=== PATIENT | female | born 1995 | race Caucasian/White ===

== ENCOUNTER 2022-05-03 12:43 | Emergency (ER) | payer OTHER ==
[~2022-05-03] VITALS: Ht 162.6 cm; Wt 109.1 kg
[2022-05-03 12:50] VITALS: TEMP 98.5
[2022-05-03 13:55] LABS: BASO % 0.7 % (0.0-2.0); EOS # 0.1 K/mm3 (0.0-0.7); EOS % 1.2 % (0.0-4.0); GRAN # 3.4 K/mm3 (1.4-6.5); GRAN % 56.7 % (42.2-75.2); HEMATOCRIT 40.2 % (37.0-47.0); HEMOGLOBIN 13.2 g/dl (12.5-16.0); LYMPH # 1.8 K/mm3 (1.2-3.4); LYMPH % 29.5 % (20.0-51.0); MEAN CELL VOLUME 88 fl (80.0-100.0); MEAN CORPUSCULAR HEMOGLOBIN 29 pg (27-31); MEAN CORPUSCULAR HGB CONC 33 g/dl (33.0-37.0); MEAN PLATELET VOLUME 9.8 fl (7.4-10.4); MONO # 0.7 K/mm3 (0.1-0.6); MONO % 11.7 % (1.7-9.3); PLATELET COUNT 335 K/mm3 (130-400); RED BLOOD COUNT 4.56 M/mm3 (4.10-5.30); REDCELL DISTRIBUTION WIDTH-CV 12.7 % (11.5-14.5)
[2022-05-03 14:11] LABS: ALBUMIN 4.1 gm/dL (3.5-5.0); BILIRUBIN,TOTAL 0.6 mg/dL (0.2-1.2); CALCIUM 9.8 mg/dL (8.4-10.2); CREATININE, serum 0.81 mg/dL (0.57-1.11); POTASSIUM 4.5 mmol/L (3.5-4.5); TOTAL PROTEIN 7.5 gm/dL (6.2-8.1)
[2022-05-03 15:32] VITALS: BP 142/100; PULSE 74
== END 2022-05-03 15:33 | disposition home or self-care (01) ==
LOC: COL.ER 12:43
PROVIDERS: Physician Assistant
DX: N93.9 Abnormal uterine and vaginal bleeding, unspecified (principal); R03.0 Elevated blood-pressure reading, without diagnosis of hypertension; Z28.310 Unvaccinated for COVID-19
CPT/HCPCS: J7030

== ENCOUNTER 2022-12-13 23:27 | Observation (INO) | payer OTHER ==
[~2022-12-13] VITALS: Ht 162.6 cm; Wt 118.2 kg
[2022-12-14] VITALS (7 sets, daily range): BP systolic 112–135; BP diastolic 65–85; PULSE 69–85; TEMP 98–98.9
[2022-12-14] MEDS ORDERED: PRILOSEC 20MG20 MG PO (01:18)
[2022-12-14] MEDS ORDERED: LAMICTAL 100MG100 MG PO (01:19)
[2022-12-14] MEDS ORDERED: BRINTELLIX20 PO (01:19)
[2022-12-14 08:08] LABS: BASO # 0.1 K/mm3 (0.0-0.2); BASO % 1.2 % (0.0-2.0); EOS # 0.1 K/mm3 (0.0-0.7); EOS % 1.2 % (0.0-4.0); GRAN # 2.8 K/mm3 (1.4-6.5); GRAN % 55.6 % (42.2-75.2); HEMATOCRIT 39.1 % (37.0-47.0); HEMOGLOBIN 12.8 g/dl (12.5-16.0); LYMPH # 1.6 K/mm3 (1.2-3.4); MEAN CELL VOLUME 89 fl (80.0-100.0); MEAN CORPUSCULAR HEMOGLOBIN 29 pg (27-31); MEAN CORPUSCULAR HGB CONC 33 g/dl (33.0-37.0); MEAN PLATELET VOLUME 9.9 fl (7.4-10.4); MONO # 0.5 K/mm3 (0.1-0.6); MONO % 10.8 % (1.7-9.3); PLATELET COUNT 266 K/mm3 (130-400); RED BLOOD COUNT 4.39 M/mm3 (4.10-5.30)
--- NOTE | 2022-12-14 08:20 | NUR ---
c/o pain 03/22, requesting a different pain pill as oxycodone caused nausea, medicated with norco 5mg 1 tab, was also medicated earlier with zofran 4mg slow IV by student RN assisting with her care, full assessment completed, see interventions for further info
[2022-12-14 08:31] LABS: ALBUMIN 3.7 gm/dL (3.5-5.0); BILIRUBIN,TOTAL 3.9 mg/dL (0.2-1.2); CALCIUM 8.7 mg/dL (8.4-10.2); CREATININE, serum 0.67 mg/dL (0.57-1.11); MAGNESIUM 1.9 mg/dL (1.6-2.6); POTASSIUM 3.5 mmol/L (3.5-4.5); TOTAL PROTEIN 6.8 gm/dL (6.2-8.1)
--- NOTE | 2022-12-14 09:06 | NUR ---
reviewed assessment completed by student RN and in agreement with that assessment
--- NOTE | 2022-12-14 09:10 | NUR ---
to radiology for MRCP per WC
--- NOTE | 2022-12-14 09:50 | NUR ---
returned per WC from radiology, back to bed and will rest
--- NOTE | 2022-12-14 11:16 | NUR ---
Telephone Answering Service Operator met with Patient in [facility] Medical Unit to conduct Care Managment Assessment and discuss diacherge planning. Patient lives in [place], [place] with her , Les P: [phone] and her children. PAtient is established with PCP through [facility] on [address] [place], [place] where she also recieves RX services. PAtient denies the use of O2, DME, and home health services prior to admission. PAtient reports to not have advanced directives and declines to establish them during this admission. Patient intends to discharge home when medically cleared pending treatment team reccomendations. Discharge Plan: Home pending treatment team reccomendations.
--- NOTE | 2022-12-14 13:23 | NUR ---
Initial visit: Locate Technician stopped by room on rounds. Pt has no needs right now. Locate Technician will follow up as needed.
--- NOTE | 2022-12-14 13:30 | NUR ---
Dr Armas in to se patient
--- NOTE | 2022-12-14 14:09 | NUR ---
RON charting reviewed, john with documentation. STEFAN Villagomez Clincial Instructor.
--- NOTE | 2022-12-14 14:21 | NUR ---
resting in bed, c/o some nausea and requesting zofran, will request student RN to provide this
--- NOTE | 2022-12-14 16:00 | NUR ---
appears to be sleeping
--- NOTE | 2022-12-14 17:30 | NUR ---
called concerned because she had not responded to his messages, awakened from sleep and asked her to call him, verbalizes understanding
--- NOTE | 2022-12-14 18:43 | NUR ---
resting in bed, c/o some nausea, bedside shift report given to STEFAN Maria
[2022-12-15 04:17] VITALS: BP 133/72; PULSE 83; TEMP 98
[2022-12-15 06:38] LABS: BASO % 0.8 % (0.0-2.0); EOS # 0.1 K/mm3 (0.0-0.7); EOS % 1.9 % (0.0-4.0); GRAN # 1.9 K/mm3 (1.4-6.5); GRAN % 39.1 % (42.2-75.2); HEMATOCRIT 38.4 % (37.0-47.0); HEMOGLOBIN 12.5 g/dl (12.5-16.0); LYMPH # 2.1 K/mm3 (1.2-3.4); LYMPH % 44.2 % (20.0-51.0); MEAN CELL VOLUME 89 fl (80.0-100.0); MEAN CORPUSCULAR HEMOGLOBIN 29 pg (27-31); MEAN CORPUSCULAR HGB CONC 33 g/dl (33.0-37.0); MEAN PLATELET VOLUME 10.1 fl (7.4-10.4); MONO # 0.7 K/mm3 (0.1-0.6); PLATELET COUNT 272 K/mm3 (130-400); REDCELL DISTRIBUTION WIDTH-CV 13.2 % (11.5-14.5)
[2022-12-15 06:55] LABS: ALBUMIN 3.5 gm/dL (3.5-5.0); BILIRUBIN,DIRECT 1.9 mg/dL (0.0-0.5); BILIRUBIN,TOTAL 2.7 mg/dL (0.2-1.2); CALCIUM 8.8 mg/dL (8.4-10.2); CREATININE, serum 0.74 mg/dL (0.57-1.11); POTASSIUM 3.5 mmol/L (3.5-4.5); TOTAL PROTEIN 6.6 gm/dL (6.2-8.1)
[2022-12-15 07:17] VITALS: BP 107/58; PULSE 73; TEMP 96.8
--- NOTE | 2022-12-15 07:47 | NUR ---
Pt is laying in bed upon entering room. Morning medications administered per eMAR. Shift assessment completed. VSS. INT in L AC remains patent, no edema or redness. Pt continues to c/o ABD pain, PRN norco administered. No further requeset at this time. Call light within reach.
[2022-12-15 10:54] VITALS: BP 110/64; PULSE 66; TEMP 98.5
[2022-12-15] MEDS ORDERED: ROXICODONE 55 MG/TAB PO ×2 (11:59)
[2022-12-15] MEDS ORDERED: ZOFRAN ODT4 MG PO (11:59)
[2022-12-15] MEDS ORDERED: ULTRAM 50MG TAB50 MG PO (12:04)
--- NOTE | 2022-12-15 13:29 | NUR ---
Pt discharge instructions provided. All questions answered. INT in L AC discontinued with catheter tip intact. Pt waiting for ride to arrive.
--- NOTE | 2022-12-15 14:17 | NUR ---
Pt escorted out of facility via wheelchair by NORMAN Medina.
== END 2022-12-15 14:18 | disposition home or self-care (01) ==
LOC: MEDICAL 23:27
PROVIDERS: Student in an Organized Health Care Education/Training Program; ADMIT Internal Medicine
DX: R10.13 Epigastric pain (principal); F32.A Depression, unspecified; F41.9 Anxiety disorder, unspecified; F43.10 Post-traumatic stress disorder, unspecified; F44.4 Conversion disorder with motor symptom or deficit; G40.909 Epilepsy, unspecified, not intractable, without status epilepticus; K21.9 Gastro-esophageal reflux disease without esophagitis; R79.89 Other specified abnormal findings of blood chemistry; R74.01 Elevation of levels of liver transaminase levels
CPT/HCPCS: C9113; G0378; G0379; J2270; J2405

== ENCOUNTER 2022-12-16 16:06 | Emergency (ER) | payer OTHER ==
[~2022-12-16] VITALS: Ht 162.6 cm; Wt 118.2 kg
[~2022-12-16 16:06] MED LIST: BRINTELLIX20 PO; LAMICTAL 100MG100 MG PO; PRILOSEC 20MG20 MG PO; ROXICODONE 55 MG/TAB PO; ULTRAM 50MG TAB50 MG PO; ZOFRAN ODT4 MG PO
[2022-12-16 16:10] VITALS: TEMP 98.8
[2022-12-16 16:51] LABS: BASO % 0.4 % (0.0-2.0); EOS % 0.5 % (0.0-4.0); GRAN # 3.7 K/mm3 (1.4-6.5); GRAN % 65.4 % (42.2-75.2); HEMATOCRIT 39.5 % (37.0-47.0); HEMOGLOBIN 12.8 g/dl (12.5-16.0); LYMPH # 1.4 K/mm3 (1.2-3.4); LYMPH % 24.1 % (20.0-51.0); MEAN CELL VOLUME 89 fl (80.0-100.0); MEAN CORPUSCULAR HEMOGLOBIN 29 pg (27-31); MEAN CORPUSCULAR HGB CONC 32 g/dl (33.0-37.0); MEAN PLATELET VOLUME 9.6 fl (7.4-10.4); MONO # 0.5 K/mm3 (0.1-0.6); MONO % 9.6 % (1.7-9.3); PLATELET COUNT 286 K/mm3 (130-400); RED BLOOD COUNT 4.43 M/mm3 (4.10-5.30); REDCELL DISTRIBUTION WIDTH-CV 13.6 % (11.5-14.5)
[2022-12-16 17:11] LABS: BILIRUBIN,TOTAL 3.7 mg/dL (0.2-1.2); C-REACTIVE PROTEIN 0.72 mg/dL (0.00-0.50); CALCIUM 9.6 mg/dL (8.4-10.2); CREATININE, serum 0.74 mg/dL (0.57-1.11); MAGNESIUM 1.8 mg/dL (1.6-2.6); POTASSIUM 3.6 mmol/L (3.5-4.5); TOTAL PROTEIN 7.6 gm/dL (6.2-8.1)
[2022-12-16 17:14] LABS: COLLECTION METHOD CLEAN CATCH
[2022-12-16 17:19] LABS: MUCOUS Present (NOT PRESENT); URINE BACTERIA None Seen /hpf (NONE SEEN)
[2022-12-16 17:21] LABS: PH 7.5 (5-8); URINE APPEARANCE Hazy (CLEAR/HAZY); URINE BLOOD TRACE-INTACT (NEGATIVE); URINE COLOR Yellow (YELLOW); URINE GLUCOSE Negative (NEGATIVE); URINE KETONE 2+ (NEGATIVE); URINE NITRATE Negative (NEGATIVE); URINE PROTEIN(semi-quant) TRACE (NEGATIVE)
[2022-12-16 23:10] VITALS: BP 120/72; PULSE 78
== END 2022-12-16 23:14 | disposition short-term general hospital (02) ==
LOC: COL.ER 16:06
PROVIDERS: Emergency Medicine
DX: R74.01 Elevation of levels of liver transaminase levels (principal); E80.7 Disorder of bilirubin metabolism, unspecified; R10.11 Right upper quadrant pain; Z90.49 Acquired absence of other specified parts of digestive tract; Z88.5 Allergy status to narcotic agent; Z28.310 Unvaccinated for COVID-19
CPT/HCPCS: J2270; J2405; J7030